=== PATIENT | female | born 1950 | race Caucasian/White ===

== ENCOUNTER 2016-08-06 06:50 | Inpatient (IN) | payer MEDICARE ==
[2016-08-06] MEDS ORDERED: SODIUM CHLORIDE 0.9% 1,000 ML IV STA ×2 (07:20→09:23)
[2016-08-06] MEDS ORDERED: ACETAMINOPHEN TAB 500 MG TAB PO STA (07:20)
--- NOTE | 2016-08-06 07:22 | ED ---
General Adult HPI - General Chief complaint: Urogenital Stated complaint: Dysuria Time Seen by Provider: 08/06/16 07:05 Source: patient, family, RN notes reviewed Mode of arrival: ambulatory Limitations: no limitations - History of Present Illness Initial comments: Patient is a pleasant 65-year-old female presenting to the emergency department with complaints of dysuria. Symptoms have been present for a couple of weeks now. Patient had a similar bad urinary tract infection a year ago. Patient was seen at a clinic in [place]. She does not have the name or phone number. Patient was told she had E. coli in her urine. Patient has been on 2 antibiotics, Bactrim and Macrobid however symptoms seemed to worsen. This morning patient developed myalgias. - Related Data Home Medications Medication Instructions Recorded Confirmed Ranger Thyroid Unknown Dose 1 tab PO DAILY 08/06/16 08/06/16 Allergies Allergy/AdvReac Type Severity Reaction Status Date / Time No Known Allergies Allergy Verified 08/06/16 08:16 Review of Systems ROS Statement: Those systems with pertinent positive or pertinent negative responses have been documented in the HPI. ROS Other: All systems not noted in ROS Statement are negative. Constitutional: Reports: chills, other (Myalgias) Eyes: Denies: eye pain ENT: Denies: ear pain Respiratory: Denies: cough Cardiovascular: Denies: chest pain Endocrine: Reports: fatigue Gastrointestinal: Denies: abdominal pain Genitourinary: Reports: urgency, dysuria, frequency Musculoskeletal: Denies: back pain Skin: Denies: lesions Neurological: Denies: weakness Past Medical History Past Medical History: Thyroid Disorder History of Any Multi-Drug Resistant Organisms: None Reported Past Surgical History: No Surgical Hx Reported Past Psychological History: No Psychological Hx Reported Smoking Status: Current some day smoker Past Alcohol Use History: Occasional Past Drug Use History: None Reported General Exam Limitations: no limitations General appearance: alert, in no apparent distress Head exam: Present: atraumatic, normocephalic Eye exam: Present: normal appearance Neck exam: Present: normal inspection Respiratory exam: Present: normal lung sounds bilaterally Cardiovascular Exam: Present: regular rate, normal rhythm GI/Abdominal exam: Present: soft. Absent: tenderness Extremities exam: Present: normal inspection Neurological exam: Present: alert Psychiatric exam: Present: normal affect, normal mood Skin exam: Present: normal color Course Vital Signs 06/18/17 06:55 Temperature 101.5 F H Pulse Rate 105 H Respiratory 20 Rate Blood Pressure 199/81 O2 Sat by Pulse 95 Oximetry Medical Decision Making - Medical Decision Making Patient reexamined and improved. Patient and family updated on results and plan. Case discussed in detail with Dr. Nunez, who will admit for Dr. Palma. Patient does meet sepsis criteria diagnosed at 9:18 AM. IV fluid bolus has been started. IV antibiotics has been started. Blood culture and lactic acid have been ordered. - Lab Data Result diagrams: 08/06/16 07:49 08/06/16 07:49 Lab Results 08/06/16 08/06/16 08/06/16 Range/Units 07:49 07:49 07:49 WBC 9.4 (3.8-10.6) k/uL RBC 4.27 (3.80-5.40) m/uL Hgb 13.9 (11.4-16.0) gm/dL Hct 41.8 (34.0-46.0) % MCV 98.0 (80.0-100.0) fL MCH 32.6 (25.0-35.0) pg MCHC 33.2 (31.0-37.0) g/dL RDW 12.7 (11.5-15.5) % Plt Count 230 (150-450) k/uL Neutrophils % 89 % Lymphocytes % 4 % Monocytes % 2 % Eosinophils % 4 % Basophils % 0 % Neutrophils # 8.4 H (1.3-7.7) k/uL Lymphocytes # 0.4 L (1.0-4.8) k/uL Monocytes # 0.2 (0-1.0) k/uL Eosinophils # 0.4 (0-0.7) k/uL Basophils # 0.0 (0-0.2) k/uL PT (9.0-12.0) sec INR (<1.1) APTT (22.0-30.0) sec Sodium 137 (137-145) mmol/L Potassium 5.0 (3.5-5.1) mmol/L Chloride 102 (98-107) mmol/L Carbon Dioxide 24 (22-30) mmol/L Anion Gap 11 mmol/L BUN 15 (7-17) mg/dL Creatinine 0.59 (0.52-1.04) mg/dL Est GFR (MDRD) Af Amer >60 (>60 ml/min/1.73 sqM) Est GFR (MDRD) Non-Af >60 (>60 ml/min/1.73 sqM) Glucose 112 H (74-99) mg/dL Plasma Lactic Acid Kobe 2.7 H* (0.7-2.0) mmol/L Calcium 9.4 (8.4-10.2) mg/dL Total Bilirubin 0.7 (0.2-1.3) mg/dL AST 55 H (14-36) U/L ALT 59 H (9-52) U/L Alkaline Phosphatase 67 (38-126) U/L Total Protein 6.7 (6.3-8.2) g/dL Albumin 4.2 (3.5-5.0) g/dL Urine Color Urine Appearance (Clear) Urine pH (5.0-8.0) Ur Specific Matador (1.001-1.035) Urine Protein (Negative) Urine Glucose (UA) (Negative) Urine Ketones (Negative) Urine Blood (Negative) Urine Nitrite (Negative) Urine Bilirubin (Negative) Urine Urobilinogen (<2.0) mg/dL Ur Leukocyte Esterase (Negative) Urine RBC (0-5) /hpf Urine WBC (0-5) /hpf Urine Mucus (None) /hpf 08/06/16 08/06/16 Range/Units 08:20 08:55 WBC (3.8-10.6) k/uL RBC (3.80-5.40) m/uL Hgb (11.4-16.0) gm/dL Hct (34.0-46.0) % MCV (80.0-100.0) fL MCH (25.0-35.0) pg MCHC (31.0-37.0) g/dL RDW (11.5-15.5) % Plt Count (150-450) k/uL Neutrophils % % Lymphocytes % % Monocytes % % Eosinophils % % Basophils % % Neutrophils # (1.3-7.7) k/uL Lymphocytes # (1.0-4.8) k/uL Monocytes # (0-1.0) k/uL Eosinophils # (0-0.7) k/uL Basophils # (0-0.2) k/uL PT 10.9 (9.0-12.0) sec INR 1.1 (<1.1) APTT 23.0 (22.0-30.0) sec Sodium (137-145) mmol/L Potassium (3.5-5.1) mmol/L Chloride (98-107) mmol/L Carbon Dioxide (22-30) mmol/L Anion Gap mmol/L BUN (7-17) mg/dL Creatinine (0.52-1.04) mg/dL Est GFR (MDRD) Af Amer (>60 ml/min/1.73 sqM) Est GFR (MDRD) Non-Af (>60 ml/min/1.73 sqM) Glucose (74-99) mg/dL Plasma Lactic Acid Kobe (0.7-2.0) mmol/L Calcium (8.4-10.2) mg/dL Total Bilirubin (0.2-1.3) mg/dL AST (14-36) U/L ALT (9-52) U/L Alkaline Phosphatase (38-126) U/L Total Protein (6.3-8.2) g/dL Albumin (3.5-5.0) g/dL Urine Color Yellow Urine Appearance Clear (Clear) Urine pH 6.5 (5.0-8.0) Ur Specific Matador 1.009 (1.001-1.035) Urine Protein Negative (Negative) Urine Glucose (UA) Negative (Negative) Urine Ketones Negative (Negative) Urine Blood Small H (Negative) Urine Nitrite Negative (Negative) Urine Bilirubin Negative (Negative) Urine Urobilinogen <2.0 (<2.0) mg/dL Ur Leukocyte Esterase Negative (Negative) Urine RBC 8 H (0-5) /hpf Urine WBC 5 (0-5) /hpf Urine Mucus Rare H (None) /hpf - Radiology Data Radiology results: image reviewed (Chest x-ray shows left basilar atelectasis versus infiltrate. Correlate for COPD., Right cardiophrenic angle likely cardiac fat pad) Critical Care Time Critical Care Time: Yes Total Critical Care Time: 32 Disposition Clinical Impression: Urinary tract infection, Severe sepsis Disposition: ADMITTED IP TO THIS [facility] Referrals: Gurmeet Palma MD [Primary Care Provider] - 1-2 days Decision Time: 09:24
[2016-08-06 08:07] LABS: Basophils % (A) 0 %; CH 32.5; CHCM 33.3; Eosinophils # (A) 0.4 k/uL (0-0.7); Eosinophils % (A) 4 %; HCT 41.8 % (34.0-46.0); HDW 2.11; HGB 13.9 gm/dL (11.4-16.0); Luc # (Auto) 0.12; Luc % (Auto) 1; Lymphocytes # (A) 0.4 k/uL (1.0-4.8); Lymphocytes % (A) 4 %; MCH 32.6 pg (25.0-35.0); MCHC 33.2 g/dL (31.0-37.0); Mean Platelet Volume 7.3; Monocytes # (A) 0.2 k/uL (0-1.0); Monocytes % (A) 2 %; Neutrophils # (A) 8.4 k/uL (1.3-7.7); Neutrophils % (A) 89 %; RBC 4.27 m/uL (3.80-5.40); RDW 12.7 % (11.5-15.5); WBC 9.4 k/uL (3.8-10.6)
[2016-08-06 08:14] LABS: Anion Gap 11 mmol/L; Calcium 9.4 mg/dL (8.4-10.2); Carbon Dioxide 24 mmol/L (22-30); Chloride 102 mmol/L (98-107); Glucose 112 mg/dL (74-99); Non-African American GFR(MDRD) >60 (>60 ml/min/1.73 sqM); Sodium 137 mmol/L (137-145); Total Bilirubin 0.7 mg/dL (0.2-1.3); Total Protein 6.7 g/dL (6.3-8.2)
[2016-08-06 08:15] LABS: Blood Urea Nitrogen 15 mg/dL (7-17)
--- NOTE | 2016-08-06 08:15 | XR ---
EXAMINATION TYPE: XR chest 2V DATE OF EXAM: 08/06/2016 COMPARISON: NONE TECHNIQUE: PA and lateral views submitted. HISTORY: Fever FINDINGS: Subsegmental changes are seen at the left lung base. Biapical pleural thickening. Hyperinflation suggests COPD. There is a prominent density along the right cardiophrenic angle. Degen erative change of the spine. IMPRESSION: 1. Left basilar atelectasis or infiltrate. 2. Correlate for COPD. There is prominence the right cardiophrenic angle which likely represents a pr ominent cardiac fat pad. Short-term follow-up CT of the chest could be obtained for confirmation as c linically warranted.
[2016-08-06 08:16] LABS: ALT 59 U/L (9-52); AST 55 U/L (14-36); Alkaline Phosphatase 67 U/L (38-126)
[2016-08-06 08:39] LABS: Appearance,Urine Clear (Clear); Bilirubin,Urine Negative (Negative); Glucose,Urine (UA) Negative (Negative); Ketones,Urine Negative (Negative); Leukocyte Esterase,Urine Negative (Negative); Mucus,Urine Rare /hpf; Nitrite,Urine Negative (Negative); PH, Urine 6.5 (5.0-8.0); Particle Count 886; Protein,Urine Negative (Negative); RBC,Urine 8 /hpf (0-5); Specific Gravity,Urine 1.009 (1.001-1.035); UA Billing (MACRO vs. MICRO) MICRO; Urobilinogen,Urine <2.0 mg/dL (<2.0); WBC,Urine 5 /hpf (0-5)
[2016-08-06 09:17] LABS: INR 1.1 (<1.1)
[2016-08-06 09:18] LABS: Prothrombin Time 10.9 sec (9.0-12.0)
[2016-08-06] MEDS ORDERED: NALOXONE 0.4 MG/ML 1 ML VIAL IV PRN (09:25)
[2016-08-06] MEDS ORDERED: RX INFO: IV CONTRAST WAS GIVEN 1 EACH MISC MISCELLANE PRN (09:27)
[2016-08-06] MEDS: SODIUM CHLORIDE 0.9% 1,000 ML IV SCH ×3 (09:38→21:51)
--- NOTE | 2016-08-06 10:24 | CT ---
EXAMINATION TYPE: CT chest w con DATE OF EXAM: Criteria COMPARISON: NONE HISTORY: Abn CXR CT DLP: 184.2 mGycm Automated exposure control for dose reduction was used. CONTRAST: CT scan of the chest is performed with IV Contrast, patient injected with 100 mL of Omnipaque 300. FINDINGS: Apical pleural thickening seen with findings suggestive of COPD and pulmonary fibrosis. Pleural-based densities posteriorly likely postinflammatory. No pneumothorax or pleural effusion. Subsegmental consolidation at the left lung base. There also is subsegmental consolidation the right lung base. Prominence of the right cardiophrenic angle is compatible with fat pad as noted by x-ray. Hypertrophic and degenerative change of the spine. Small hiatal hernia noted. Hypodensity within the liver too small to characterize accurately. There is adenopathy within the subcarinal and bilateral hilar regions. Aorta of normal caliber. 2 mm nodule lower lobe left likely benign. IMPRESSION: 1. Prominence the cardiophrenic angle as noted by chest x-ray is compatible with a prominent fat pad. 2. COPD with probable interstitial chronic lung disease such as fibrosis. Areas of basilar atelectasi s favored over early infiltrate. 3. There is pathologic bilateral hilar and subcarinal adenopathy. 4. 2 mm left lower lobe pulmonary nodule likely benign. Six-month follow-up CT scan recommended.
[2016-08-06] MEDS ORDERED: AZITHROMYCIN 500 MG in SODIUM CHLORIDE 0.9% 250 ML IVPB SCH (12:00)
[2016-08-06] MEDS: ALPRAZolam 0.25 MG TAB PO PRN ×2 (13:22→21:49)
[2016-08-06] MEDS: PHENAZOPYRIDINE 200 MG TAB PO SCH ×2 (15:11→21:49)
[2016-08-06] MEDS: ACETAMINOPHEN TAB 325 MG TAB PO PRN ×2 (15:54→21:48)
[2016-08-06] MEDS: diphenhydrAMINE 50 MG/ML 1 ML VIAL IVP PRN (18:15)
--- NOTE | 2016-08-06 18:28 | HP ---
DATE OF ADMISSION: 08/06/2016 CHIEF COMPLAINT: Dysuria. HISTORY OF PRESENT ILLNESS: This is a 65-year-old female who presented to the emergency department complaining of dysuria. The patient had a history of recurrent urinary tract infection for almost one year with multiple antibiotic treatment outpatient failed recently and the patient presented to the emergency department due to ongoing symptoms after treating with Cipro. The patient said she has frequency, hesitancy and drippling. Patient denied any blood in the urine. Denied any fever or chills and denied any nausea or vomiting or flank pain. Patient completed her course of Bactrim and Macrobid and thinks that her symptoms got worse and the patient this morning developed some weakness and presented to the emergency department. Patient is denying fever or chills, nausea, vomiting, abdominal pain, dizziness, lightheadedness, shortness breath, no cough. REVIEW OF SYSTEMS: All 14 systems reviewed and negative except as above. ALLERGIES: No known drug allergies. HOME MEDICATIONS: Troy 1 tablet daily. PAST MEDICAL AND SURGICAL HISTORY: 1. Hypothyroidism. 2. Recurrent urinary tract infection. SOCIAL HISTORY: Patient smokes less than 5 cigarettes a day and not every day. Denied alcohol or drug abuse. Still independent in all her daily activities. FAMILY HISTORY: Reviewed and negative. PHYSICAL EXAMINATION: VITAL SIGNS: Temperature 101.5, heart rate of 105, respiratory rate 20, blood pressure is 199/81, respiratory rate is ( ), saturation is 95% on room air. GENERAL: In her stated age, in no acute distress. HEENT: Atraumatic, normocephalic. PERRLA. NECK: Supple, no masses. No thyromegaly. LUNGS: Clear to auscultation bilaterally. HEART: Normal S1, S2. ABDOMEN: Soft, no tenderness, positive bowel sounds in all 4 quadrants. EXTREMITIES: Lower extremities no edema. PSYCH: Alert, and oriented x3. SKIN: No new rash. Imaging and labs: CBC showed normal findings. Chemistry showed normal findings. Glucose slightly elevated at 112. Lactic acid was elevated at 2.7 and the highest normal is 2.0, AST, ALT, slightly elevated at 55, 59 respectively. PT, PTT, INR within normal limits. UA was positive for a small blood, 8 red blood cells, 5 white blood cells and rare mucus. Chest x-ray showed left basilar atelectasis versus infiltrate. ASSESSMENT AND PLAN: 1. Sepsis, given the patient fever of 101.5, heart rate of 105, positive UA with positive chest x-ray. I would like to admit the patient to telemetry, start her on IV antibiotics. The patient received multiple fluid boluses due to elevated lactic acid and I would like to continue with fluid hydration. Monitor the patient's vital signs closely and follow up on urine culture blood culture. Patient is agreeing to the current treatment plan. 2. Recurrent urinary tract infection which failed outpatient treatment. Will continue antibiotics at this point. Follow up on culture results and consider infectious disease based on clinical progress. 3. Hypothyroidism. We will check on her TSH. 4. Uncontrolled hypertension and I would like to monitor blood pressure closely and goal is less than 140/90. 5. Deep venous thrombosis prophylaxis, the patient will be started on Lovenox 40 daily. 6. Discharge process based on clinical progress.
[2016-08-06 22:02] VITALS: RESP 16
[2016-08-07] MEDS: diphenhydrAMINE 50 MG/ML 1 ML VIAL IVP PRN ×3 (06:03→18:45)
[2016-08-07] MEDS: ACETAMINOPHEN TAB 325 MG TAB PO PRN (06:09)
[2016-08-07 07:58] LABS: Basophils % (A) 0 %; CH 32.8; CHCM 34.3; Eosinophils # (A) 0.5 k/uL (0-0.7); Eosinophils % (A) 8 %; HCT 35.9 % (34.0-46.0); HDW 2.33; HGB 12.2 gm/dL (11.4-16.0); Luc # (Auto) 0.08; Luc % (Auto) 1; Lymphocytes # (A) 0.4 k/uL (1.0-4.8); Lymphocytes % (A) 7 %; MCH 32.5 pg (25.0-35.0); MCHC 33.9 g/dL (31.0-37.0); MCV 95.9 fL (80.0-100.0); Monocytes # (A) 0.2 k/uL (0-1.0); Monocytes % (A) 3 %; Neutrophils # (A) 4.7 k/uL (1.3-7.7); Neutrophils % (A) 80 %; RBC 3.74 m/uL (3.80-5.40); RDW 12.6 % (11.5-15.5); WBC 5.9 k/uL (3.8-10.6); WBC (Perox) 6.28
--- NOTE | 2016-08-07 08:09 | US ---
EXAMINATION TYPE: US renals and bladder DATE OF EXAM: 08/06/2016 COMPARISON: NONE CLINICAL HISTORY: Flank pain. EXAM MEASUREMENTS: Right Kidney: 11.4 x 4.7 x 4.9 cm Left Kidney: 11.2 x 5.1 x 4.9 cm Limited due to nature of exam portable and overlying bowel gas. Right Kidney: Appears wnl Left Kidney: Appears wnl Bladder: Appears wnl Bilateral Jets seen: Yes There is no evidence for hydronephrosis at this point in time. No nephrolithiasis is seen. No aramis s are identified. The kidneys are morphologically normal, cortical medullary differentiation is main tained. The urinary bladder is anechoic. Bilateral ureteral jets are seen. IMPRESSION: Normal renal ultrasound
[2016-08-07 08:13] LABS: ALT 126 U/L (9-52); AST 89 U/L (14-36); Alkaline Phosphatase 73 U/L (38-126); Anion Gap 7 mmol/L; Blood Urea Nitrogen 8 mg/dL (7-17); Calcium 8.5 mg/dL (8.4-10.2); Carbon Dioxide 23 mmol/L (22-30); Chloride 108 mmol/L (98-107); Glucose 86 mg/dL (74-99); Non-African American GFR(MDRD) >60 (>60 ml/min/1.73 sqM); Potassium 3.7 mmol/L (3.5-5.1); Sodium 138 mmol/L (137-145); Total Bilirubin 0.5 mg/dL (0.2-1.3); Total Protein 5.4 g/dL (6.3-8.2)
[2016-08-07] MEDS ORDERED: IBUPROFEN 600 MG TAB PO PRN (08:59)
[2016-08-07] MEDS: ENOXAPARIN 40 MG/0.4 ML SYRINGE SQ SCH (09:06)
[2016-08-07] MEDS: PHENAZOPYRIDINE 200 MG TAB PO SCH ×3 (09:08→21:04)
[2016-08-07] MEDS: ALPRAZolam 0.25 MG TAB PO PRN ×2 (09:12→19:18)
--- NOTE | 2016-08-07 10:00 | P.CONS ---
History of Present Illness - Reason for Consult Consult date: 08/07/16 UTIs - History of Present Illness This is a 65-year-old female. She gives history that she had a urinary tract infection last September which took a couple weeks to complete we clear up. She states she was on 2 different antibiotics at that time and does not remember the names. She had not had any previous urinary tract infections for 20 years. Patient states she started having symptoms 2-3 weeks ago which include pressure, urgency, back pain on the left. She was treated in [place] initially and placed on Bactrim which she started feeling better the first day or so and then started feeling bad again. She and her traveled to to visit their daughter and due to ongoing symptoms, she went to the [facility] clinic in [place], [place]. She was told she had E. coli in her urine and was placed on Macrobid. She states she felt better for about 1 day and then started feeling bad again. This weekend, she started feeling bad on Sunday and developed fever as well but she was at her grandson's graduation green party and postponed it until Sunday. She presented to [facility] emergency center with the above complaints. Her temperature was 101.5, pulse 105, white count 9.4, GFR greater than 60, lactic acid initially 2.7 with repeat at 0.8 status post fluid bolus, AST 55 and ALT 55, urinalysis was clear, blood small, nitrate and leukoesterase negative. 2 urine cultures are in process, blood culture is received. Legionella is status post received. Patient received 1 dose of azithromycin in the emergency center as well as ceftriaxone which was continued and [facility]. Patient denies any pulmonary complaints, no chest pain, shortness of breath, cough, sputum production. She states the pressure to her lower abdomen is improved she is complaining of severe headache. Patient did develop a rash after receiving these azithromycin and ceftriaxone. Patient was also hypertensive on presentation which is unusual for her. Patient states that when this initially started she was having a large amount of blood from her urine. Renal ultrasound is normal. Review of Systems All systems: negative Constitutional: Reports chills, Reports fever Eyes: denies blurred vision, denies pain Ears, nose, mouth and throat: Denies headache, Denies sore throat Cardiovascular: Denies chest pain, Denies leg edema, Denies shortness of breath Respiratory: Denies cough, Denies cough with sputum, Denies dyspnea, Denies excessive sputum, Denies hemoptysis, Denies home oxygen, Denies pain, Denies pain on inspiration, Denies respiratory infections, Denies wheezing Gastrointestinal: Reports abdominal pain, Denies diarrhea, Denies nausea, Denies vomiting Genitourinary: Reports flank pain, Reports hematuria, Reports urgency, Denies dysuria Musculoskeletal: Denies myalgias Integumentary: Denies pruritus, Denies rash Neurological: Denies numbness, Denies weakness Psychiatric: Denies anxiety, Denies depression Endocrine: Denies fatigue, Denies weight change Past Medical History Past Medical History: Thyroid Disorder Additional Past Medical History / Comment(s): Hypothyroid History of Any Multi-Drug Resistant Organisms: None Reported Past Surgical History: No Surgical Hx Reported, Tonsillectomy Past Anesthesia/Blood Transfusion Reactions: No Reported Reaction Past Psychological History: Anxiety Smoking Status: Never smoker Past Alcohol Use History: Daily Additional Past Alcohol Use History / Comment(s): 1-2 glasses of wine/day. She lives at home with her . They travel extensively throughout the [facility] mostly in [place] and [place]. There are no pets in the home. 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 She walks on a regular basis as well as works out. Past Drug Use History: None Reported - Past Family History Mother Family Medical History: Congestive Heart Failure (CHF), Renal Disease Additional Family Medical History / Comment(s): kidney stones Father Additional Family Medical History / Comment(s): lung disease related to asbestos exposure Medications and Allergies Home Medications Medication Instructions Recorded Confirmed Type Multivitamins, Thera [Multivitamin 1 tab PO DAILY 08/06/16 08/07/16 History (formulary)] Thyroid,Pork [Nature-Throid] 97.5 mg PO DAILY 08/07/16 08/07/16 History Allergies Allergy/AdvReac Type Severity Reaction Status Date / Time ceftriaxone Allergy Intermediate Rash/Hives Verified 08/07/16 11:20 Physical Exam Vitals: Vital Signs Temp Pulse Pulse Pulse Resp BP BP 08/07/16 07:00 99.3 F 80 16 128/71 08/07/16 00:00 96 96 16 08/06/16 20:45 99.2 F 96 16 105/58 08/06/16 14:11 98.6 F 96 24 154/88 08/06/16 12:26 99.4 F 96 16 143/78 08/06/16 10:43 100.2 F H 96 18 129/61 08/06/16 09:45 100.7 F H 98 16 127/61 Pulse Ox 08/07/16 07:00 91 L 08/07/16 00:00 08/06/16 20:45 92 L 08/06/16 14:11 94 L 08/06/16 12:26 95 08/06/16 10:43 98 08/06/16 09:45 96 Intake and Output 08/06/16 08/07/16 08/07/16 22:59 06:59 14:59 Intake Total 120 1080 Balance 120 1080 Intake: Intake, IV Titration 960 Amount Sodium Chloride 0.9% 1, 960 000 ml @ 110 mls/hr IV . Q9H6M [facility] Rx#:[id number] Oral 120 120 Other: # Voids 2 3 Gen: This is a 65-year-old female. She is laying in bed and appears to be in no acute distress. HEENT: Head is atraumatic, normocephalic. Pupils equal, round. Sclerae is anicteric. NECK: Supple. No JVD. No lymphadenopathy. No thyromegaly. LUNGS: Clear to auscultation. No wheezes or rhonchi. No intercostal retractions. HEART: Regular rate and rhythm. No murmur. ABDOMEN: Soft. Bowel sounds are present. No masses. No tenderness. Mild left flank tenderness. EXTREMITIES: No pedal edema. No calf tenderness. NEUROLOGICAL: Patient is awake, alert and oriented x3. Cranial nerves 2 through 12 are grossly intact. Results Results: Laboratory Results WBC 5.9 k/uL (3.8-10.6) 08/07/16 07:19 RBC 3.74 m/uL (3.80-5.40) L 08/07/16 07:19 Hgb 12.2 gm/dL (11.4-16.0) 08/07/16 07:19 Hct 35.9 % (34.0-46.0) 08/07/16 07:19 MCV 95.9 fL (80.0-100.0) 08/07/16 07:19 MCH 32.5 pg (25.0-35.0) 08/07/16 07:19 MCHC 33.9 g/dL (31.0-37.0) 08/07/16 07:19 RDW 12.6 % (11.5-15.5) 08/07/16 07:19 Plt Count 211 k/uL (150-450) 08/07/16 07:19 Neutrophils % 80 % 08/07/16 07:19 Lymphocytes % 7 % 08/07/16 07:19 Monocytes % 3 % 08/07/16 07:19 Eosinophils % 8 % 08/07/16 07:19 Basophils % 0 % 08/07/16 07:19 Neutrophils # 4.7 k/uL (1.3-7.7) 08/07/16 07:19 Lymphocytes # 0.4 k/uL (1.0-4.8) L 08/07/16 07:19 Monocytes # 0.2 k/uL (0-1.0) 08/07/16 07:19 Eosinophils # 0.5 k/uL (0-0.7) 08/07/16 07:19 Basophils # 0.0 k/uL (0-0.2) 08/07/16 07:19 PT 10.9 sec (9.0-12.0) 08/06/16 08:55 INR 1.1 (<1.1) 08/06/16 08:55 APTT 23.0 sec (22.0-30.0) 08/06/16 08:55 Sodium 138 mmol/L (137-145) 08/07/16 07:19 Potassium 3.7 mmol/L (3.5-5.1) 08/07/16 07:19 Chloride 108 mmol/L (98-107) H 08/07/16 07:19 Carbon Dioxide 23 mmol/L (22-30) 08/07/16 07:19 Anion Gap 7 mmol/L 08/07/16 07:19 BUN 8 mg/dL (7-17) 08/07/16 07:19 Creatinine 0.59 mg/dL (0.52-1.04) 08/07/16 07:19 Est GFR (MDRD) Af Amer >60 (>60 ml/min/1.73 sqM) 08/07/16 07:19 Est GFR (MDRD) Non-Af >60 (>60 ml/min/1.73 sqM) 08/07/16 07:19 Glucose 86 mg/dL (74-99) 08/07/16 07:19 Plasma Lactic Acid Kobe 0.8 mmol/L (0.7-2.0) 08/06/16 11:19 Calcium 8.5 mg/dL (8.4-10.2) 08/07/16 07:19 Total Bilirubin 0.5 mg/dL (0.2-1.3) 08/07/16 07:19 AST 89 U/L (14-36) H 08/07/16 07:19 ALT 126 U/L (9-52) H 08/07/16 07:19 Alkaline Phosphatase 73 U/L (38-126) 08/07/16 07:19 Total Protein 5.4 g/dL (6.3-8.2) L 08/07/16 07:19 Albumin 3.1 g/dL (3.5-5.0) L 08/07/16 07:19 Urine Color Yellow 08/06/16 08:20 Urine Appearance Clear (Clear) 08/06/16 08:20 Urine pH 6.5 (5.0-8.0) 08/06/16 08:20 Ur Specific Correll 1.009 (1.001-1.035) 08/06/16 08:20 Urine Protein Negative (Negative) 08/06/16 08:20 Urine Glucose (UA) Negative (Negative) 08/06/16 08:20 Urine Ketones Negative (Negative) 08/06/16 08:20 Urine Blood Small (Negative) H 08/06/16 08:20 Urine Nitrite Negative (Negative) 08/06/16 08:20 Urine Bilirubin Negative (Negative) 08/06/16 08:20 Urine Urobilinogen <2.0 mg/dL (<2.0) 08/06/16 08:20 Ur Leukocyte Esterase Negative (Negative) 08/06/16 08:20 Urine RBC 8 /hpf (0-5) H 08/06/16 08:20 Urine WBC 5 /hpf (0-5) 08/06/16 08:20 Urine Mucus Rare /hpf (None) H 08/06/16 08:20 CBC & Chem 7: 08/07/16 07:19 08/07/16 07:19 Labs: Abnormal Lab Results - Last 24 Hours (Table) 08/06/16 08/06/16 08/07/16 Range/Units 07:49 08:20 07:19 RBC 3.74 L (3.80-5.40) m/uL Lymphocytes # 0.4 L (1.0-4.8) k/uL Chloride (98-107) mmol/L Plasma Lactic Acid Kobe 2.7 H* (0.7-2.0) mmol/L AST (14-36) U/L ALT (9-52) U/L Total Protein (6.3-8.2) g/dL Albumin (3.5-5.0) g/dL Urine Blood Small H (Negative) Urine RBC 8 H (0-5) /hpf Urine Mucus Rare H (None) /hpf 08/07/16 Range/Units 07:19 RBC (3.80-5.40) m/uL Lymphocytes # (1.0-4.8) k/uL Chloride 108 H (98-107) mmol/L Plasma Lactic Acid Kobe (0.7-2.0) mmol/L AST 89 H (14-36) U/L ALT 126 H (9-52) U/L Total Protein 5.4 L (6.3-8.2) g/dL Albumin 3.1 L (3.5-5.0) g/dL Urine Blood (Negative) Urine RBC (0-5) /hpf Urine Mucus (None) /hpf Microbiology - Last 24 Hours (Table) 08/06/16 16:18 Urine Culture - Preliminary Urine,Voided 08/06/16 08:20 Urine Culture - Preliminary Urine,Clean Catch Assessment and Plan Plan: This is a 65-year-old female who presented to the hospital with signs of sepsis secondary to urinary tract infection that failed outpatient treatment. We will ask our community fundraiser to obtain recent urinalysis and urine culture done in [place], [place]. Ceftriaxone will be discontinued with concern for ALLERGIC reaction and antibiotics will be addressed with culture report. Patient has RA been started on Benadryl and hydrocortisone ointment ointment will be added. Blood cultures status received as well as urine cultures are in progress. Continue supportive care. Further recommendations as patient progresses. The above dictated assessment and findings were discussed with Dr. Dejesus. The impression and plan of care have been directed as dictated. Virgen Villagomez nurse practitioner acting as scribe for Dr. Dejesus.
[2016-08-07] MEDS: TRIAMCINOLONE 0.1% CREAM 80 GM TUBE TOPICAL SCH ×3 (10:33→21:06)
[2016-08-07] MEDS ORDERED: LEVOFLOXACIN 500MG-D5W PMX 500 MG in DEXTROSE/WATER 1 100ML.BAG IVPB SCH (12:00)
--- NOTE | 2016-08-07 14:14 | P.PN ---
Subjective This is a 65-year-old female patient of Dr. Palma with a past medical history of hypothyroidism. She gives history that she had a urinary tract infection last September which took a couple weeks to complete we clear up. She states she was on 2 different antibiotics at that time and does not remember the names. She had not had any previous urinary tract infections for 20 years. Patient states she started having symptoms 2-3 weeks ago which include pressure, urgency, back pain on the left. She was treated in [place] initially and placed on Bactrim which she started feeling better the first day or so and then started feeling bad again. She and her traveled to to visit their daughter and due to ongoing symptoms, she went to the [facility] clinic in [place], [place]. She was told she had E. coli in her urine and was placed on Macrobid. She states she felt better for about 1 day and then started feeling bad again. This weekend, she started feeling bad on Sunday and developed fever as well but she was at her grandson's graduation libertarian and postponed it until Sunday. She presented to [facility] emergency center with the above complaints. Her temperature was 101.5 , pulse 105, white count 9.4, GFR greater than 60, lactic acid initially 2.7 with repeat at 0.8 status post fluid bolus, AST 55 and ALT 55, urinalysis was clear, blood small, nitrate and leukoesterase negative. 2 urine cultures are in process, blood culture is received. Legionella is status post received. Patient received 1 dose of azithromycin in the emergency center as well as ceftriaxone which was continued and [facility] Patient denies any pulmonary complaints, no chest pain, shortness of breath, cough, sputum production. She states the pressure to her lower abdomen is improved she is complaining of severe headache. Patient did develop a rash after receiving these azithromycin and ceftriaxone. Patient was also hypertensive on presentation which is unusual for her. Patient states that when this initially started she was having a large amount of blood from her urine. Renal ultrasound is normal. Objective - Vital Signs Vital signs: Vital Signs Temp 99.3 F 08/07/16 07:00 Pulse 80 08/07/16 07:00 Resp 16 08/07/16 07:00 BP 128/71 08/07/16 07:00 Pulse Ox 91 L 08/07/16 07:00 Intake & Output 08/06/16 08/07/16 08/07/16 18:59 06:59 18:59 Intake Total 1200 Balance 1200 Intake: Intake, IV Titration 960 Amount Sodium Chloride 0.9% 1, 960 000 ml @ 110 mls/hr IV . Q9H6M GRIFFIN Rx#:[id number] Oral 240 Other: # Voids 3 - Exam Gen: This is a 65-year-old female. She is laying in bed and appears to be in no acute distress. HEENT: Head is atraumatic, normocephalic. Pupils equal, round. Sclerae is anicteric. NECK: Supple. No JVD. No lymphadenopathy. No thyromegaly. LUNGS: Clear to auscultation. No wheezes or rhonchi. No intercostal retractions. HEART: Regular rate and rhythm. No murmur. ABDOMEN: Soft. Bowel sounds are present. No masses. No tenderness. Mild left flank tenderness. EXTREMITIES: No pedal edema. No calf tenderness. NEUROLOGICAL: Patient is awake, alert and oriented x3. Cranial nerves 2 through 12 are grossly intact. - Labs CBC & Chem 7: 08/07/16 07:19 08/07/16 07:19 Labs: Abnormal Lab Results - Last 24 Hours (Table) 08/07/16 08/07/16 Range/Units 07:19 07:19 RBC 3.74 L (3.80-5.40) m/uL Lymphocytes # 0.4 L (1.0-4.8) k/uL Chloride 108 H (98-107) mmol/L AST 89 H (14-36) U/L ALT 126 H (9-52) U/L Total Protein 5.4 L (6.3-8.2) g/dL Albumin 3.1 L (3.5-5.0) g/dL Microbiology - Last 24 Hours (Table) 08/06/16 08:55 Blood Culture - Preliminary Blood No Growth after 24 hours 08/06/16 16:18 Urine Culture - Preliminary Urine,Voided 08/06/16 08:20 Urine Culture - Preliminary Urine,Clean Catch Assessment and Plan Plan: 1. Sepsis and urinary tract infection. Consult with Dr. Dejesus. Patient placed on Levaquin until Dr. Dejesus makes arrangements for antibiotics. Culture obtained from [place]. Patient is status post IV fluid bolus. Continue Pyridium 2. ALLERGIC reaction to ceftriaxone. This is been discontinued. Continue Benadryl and hydrocortisone topically. 3. Hypothyroidism. Continue Synthroid. 4. Headache possibly caffeine related. Motrin added as needed. 5. Hypertensive readings on presentation with no previous history. Continue to monitor. 6. DVT prophylaxis. Continue Lovenox. 7. Gastrointestinal prophylaxis. Pepcid. Discharge plan: Home in the next 24-48 hours. Impression and plan of care have been directed as dictated by the signing physician. Virgen Villagomez nurse practitioner acting as scribe for signing physician.
[2016-08-07] MEDS: SODIUM CHLORIDE 0.9% 1,000 ML IV SCH ×2 (16:57→23:44)
[2016-08-07] MEDS: methylPREDNISolone SOD SUCCI 40 MG/ML 1 ML VIAL IV SCH ×2 (16:58→23:40)
--- NOTE | 2016-08-07 21:23 | P.CON ---
Consult Note - . Consult date: 08/07/16 Assessment/Plan:: This is a 65-year-old female. She gives history that she had a urinary tract infection last September which took a couple weeks to complete we clear up. She states she was on 2 different antibiotics at that time and does not remember the names. She had not had any previous urinary tract infections for 20 years. Patient states she started having symptoms 2-3 weeks ago which include pressure, urgency, back pain on the left. She was treated in [place] initially and placed on Bactrim which she started feeling better the first day or so and then started feeling bad again. She and her traveled to to visit their daughter and due to ongoing symptoms, she went to the [facility] clinic in [place], [place]. She was told she had E. coli in her urine and was placed on Macrobid. She states she felt better for about 1 day and then started feeling bad again. This weekend, she started feeling bad on Sunday and developed fever as well but she was at her grandson's graduation alliance party and postponed it until Sunday. She presented to [facility] emergency center with the above complaints. Her temperature was 101.5, pulse 105, white count 9.4, GFR greater than 60, lactic acid initially 2.7 with repeat at 0.8 status post fluid bolus, AST 55 and ALT 55, urinalysis was clear, blood small, nitrate and leukoesterase negative. 2 urine cultures are in process, blood culture is received. Legionella is status post received. Patient received 1 dose of azithromycin in the emergency center as well as ceftriaxone which was continued and [facility] Patient denies any pulmonary complaints, no chest pain, shortness of breath, cough, sputum production. She states the pressure to her lower abdomen is improved she is complaining of severe headache. Patient did develop a rash after receiving these azithromycin and ceftriaxone. Patient was also hypertensive on presentation which is unusual for her. Patient states that when this initially started she was having a large amount of blood from her urine. Renal ultrasound is normal. Please see the consult note is dictated by nurse practitioner Virgen Haneydennise. Very pleasant woman does have a history of recent travel. Developed urinary tract infection. likely had some ascending disease with her significant symptoms. Now developed a significant drug eruption from ceftriaxone. Treatment has been initiated and she is feeling slightly better. The prior urine culture shows evidence of Escherichia coli. It is susceptible to quinolone therapy. The plan 7 days from her diabetic discharge tomorrow. Likely discharge tomorrow as her drug eruption fades. Would expect that she can be treated with completion of Benadryl and no further steroids at the time of discharge. I agree with evaluation, assessment plan is dictated by nurse practitioner Mrs. Virgen Villagomez.
[2016-08-08] MEDS: methylPREDNISolone SOD SUCCI 40 MG/ML 1 ML VIAL IV SCH (05:53)
[2016-08-08 07:59] VITALS: BP 138/84; PULSE 75; TEMP 97.5
[2016-08-08] MEDS: diphenhydrAMINE 50 MG/ML 1 ML VIAL IVP PRN (08:52)
[2016-08-08] MEDS: ENOXAPARIN 40 MG/0.4 ML SYRINGE SQ SCH (08:52)
[2016-08-08] MEDS: TRIAMCINOLONE 0.1% CREAM 80 GM TUBE TOPICAL SCH (08:52)
[2016-08-08] MEDS: PHENAZOPYRIDINE 200 MG TAB PO SCH (08:52)
[2016-08-08] MEDS ORDERED: FAMOTIDINE 20 MG TAB PO SCH (09:00)
[2016-08-08] MEDS: SODIUM CHLORIDE 0.9% 1,000 ML IV SCH (11:31)
--- NOTE | 2016-08-09 16:35 | P.DS ---
Providers Date of admission: 08/06/16 09:25 Expected date of discharge: 08/08/16 Attending physician: Gurmeet Palma Consults: 08/06/16 16:05 Consult Physician Urgent Consulting Provider: Gurmeet Dejesus Reason/Comments: post travel illness Do you want consulting provider notified?: Yes Primary care physician: Gurmeet Louie [facility] Course: This is a 65-year-old female patient of Dr. Palma with a past medical history of hypothyroidism. She gives history that she had a urinary tract infection last September which took a couple weeks to complete we clear up. She states she was on 2 different antibiotics at that time and does not remember the names. She had not had any previous urinary tract infections for 20 years. Patient states she started having symptoms 2-3 weeks ago which include pressure, urgency, back pain on the left. She was treated in [place] initially and placed on Bactrim which she started feeling better the first day or so and then started feeling bad again. She and her traveled to to visit their daughter and due to ongoing symptoms, she went to the [facility] clinic in [place], [place]. She was told she had E. coli in her urine and was placed on Macrobid. She states she felt better for about 1 day and then started feeling bad again. This weekend, she started feeling bad on Sunday and developed fever as well but she was at her grandson's graduation democrat and postponed it until Sunday. She presented to [facility] emergency center with the above complaints. Her temperature was 101.5 , pulse 105, white count 9.4, GFR greater than 60, lactic acid initially 2.7 with repeat at 0.8 status post fluid bolus, AST 55 and ALT 55, urinalysis was clear, blood small, nitrate and leukoesterase negative. 2 urine cultures are in process, blood culture is received. Legionella is status post received. Patient received 1 dose of azithromycin in the emergency center as well as ceftriaxone which was continued and [facility] Patient denies any pulmonary complaints, no chest pain, shortness of breath, cough, sputum production. She states the pressure to her lower abdomen is improved she is complaining of severe headache. Patient did develop a rash after receiving these azithromycin and ceftriaxone. Patient was also hypertensive on presentation which is unusual for her. Patient states that when this initially started she was having a large amount of blood from her urine. Renal ultrasound is normal. 08/08: Patients rash is improving. She will be discharged home with benadryl and medrol dose pack. Discussed that she should avoid penicillins and cephalosporins in the future. She will be discharged on Levaquin for her urinary tract infection. Discharge Diagnoses: Plan: 1. Sepsis and urinary tract infection. 2. ALLERGIC reaction to ceftriaxone. 3. Hypothyroidism. 4. Headache possibly caffeine related. 5. Hypertensive readings on presentation with no previous history. Discharge plan: Home Impression and plan of care have been directed as dictated by the signing physician. Moira Fong nurse practitioner acting as scribe for signing physician. Plan - Discharge Summary New Discharge Prescriptions: New Acetaminophen Tab [Tylenol] 650 mg PO Q6HR PRN tab PRN Reason: Mild Pain Or Fever > 100.5 ALPRAZolam [Xanax] 0.25 mg PO Q8HR PRN #30 tab PRN Reason: Anxiety diphenhydrAMINE [Benadryl] 25 mg PO QID #60 capsule Famotidine [Pepcid] 20 mg PO DAILY tab Ibuprofen [Motrin] 600 mg PO TID PRN tab PRN Reason: Pain Levofloxacin [Levaquin] 500 mg PO DAILY #7 tab methylPREDNISolone Dose Pack [Medrol Dose Pack] 4 mg PO DIRECTED #21 package Phenazopyridine [Pyridium] 200 mg PO TID #12 tab Triamcinolone 0.1% Cream [Kenalog] 1 applic TOPICAL BID #100 gm Continue Multivitamins, Thera [Multivitamin (formulary)] 1 tab PO DAILY Thyroid,Pork [Nature-Throid] 97.5 mg PO DAILY Discharge Medication List Multivitamins, Thera [Multivitamin (formulary)] 1 tab PO DAILY 08/06/16 [History ] Thyroid,Pork [Nature-Throid] 97.5 mg PO DAILY 08/07/16 [History] ALPRAZolam [Xanax] 0.25 mg PO Q8HR PRN #30 tab 08/08/16 [Rx] Acetaminophen Tab [Tylenol] 650 mg PO Q6HR PRN tab 08/08/16 [Rx] Famotidine [Pepcid] 20 mg PO DAILY tab 08/08/16 [Rx] Ibuprofen [Motrin] 600 mg PO TID PRN tab 08/08/16 [Rx] Levofloxacin [Levaquin] 500 mg PO DAILY #7 tab 08/08/16 [Rx] Phenazopyridine [Pyridium] 200 mg PO TID #12 tab 08/08/16 [Rx] Triamcinolone 0.1% Cream [Kenalog] 1 applic TOPICAL BID #100 gm 08/08/16 [Rx] diphenhydrAMINE [Benadryl] 25 mg PO QID #60 capsule 08/08/16 [Rx] methylPREDNISolone Dose Pack [Medrol Dose Pack] 4 mg PO DIRECTED #21 package 08/08/16 [Rx] Follow up Appointment(s)/Referral(s): Mimi Ureña MD [STAFF PHYSICIAN] - 08/24/16 2:15 pm Patient Instructions/Handouts: Phenazopyridine (By mouth), Famotidine (By mouth ), Acetaminophen (By mouth), Ibuprofen (By mouth), Alprazolam (By mouth), Diphenhydramine (By mouth), Triamcinolone (On the skin), Methylprednisolone (By mouth), Levofloxacin (By mouth), Urinary Tract Infection in Women (DC), Sepsis ( GEN) Discharge Disposition: HOME SELF-CARE
== END 2016-08-08 11:48 | disposition home or self-care (01) | DRG 872 ==
LOC: EC 06:50 → 5MS5E 09:25
PROVIDERS: ADMIT Internal Medicine Geriatric Medicine; ATTEND Internal Medicine Geriatric Medicine
DX: A41.9 Sepsis, unspecified organism (principal); N39.0 Urinary tract infection, site not specified; E03.9 Hypothyroidism, unspecified; F17.210 Nicotine dependence, cigarettes, uncomplicated; F41.9 Anxiety disorder, unspecified; R51 Headache; R03.0 Elevated blood-pressure reading, without diagnosis of hypertension; L27.0 Generalized skin eruption due to drugs and medicaments taken internally; T36.1X5A Adverse effect of cephalosporins and other beta-lactam antibiotics, initial encounter; Z87.440 Personal history of urinary (tract) infections; Z79.899 Other long term (current) drug therapy; Z88.1 Allergy status to other antibiotic agents; Z82.49 Family history of ischemic heart disease and other diseases of the circulatory system; Y92.239 Unspecified place in hospital as the place of occurrence of the external cause
CPT/HCPCS: 36415; 71020; 71260; 76770; 80053; 81001; 83605; 85025; 85610; 85730; 87040; 87086; 87449; 94760

== ENCOUNTER → 2016-08-24 | Outpatient (CLI) | payer MEDICARE ==
[2016-08-24 12:23] LABS: ALT 57 U/L (9-52); AST 28 U/L (14-36); Alkaline Phosphatase 80 U/L (38-126); Anion Gap 11 mmol/L; Blood Urea Nitrogen 14 mg/dL (7-17); Calcium 10.1 mg/dL (8.4-10.2); Carbon Dioxide 24 mmol/L (22-30); Chloride 106 mmol/L (98-107); Glucose 105 mg/dL (74-99); Non-African American GFR(MDRD) >60 (>60 ml/min/1.73 sqM); Sodium 141 mmol/L (137-145); Total Bilirubin 0.5 mg/dL (0.2-1.3)
== END | disposition home or self-care (01) ==
LOC: LABWHC1 11:33
PROVIDERS: ATTEND Internal Medicine Critical Care Medicine
DX: R59.0 Localized enlarged lymph nodes (principal)
CPT/HCPCS: 36415; 80053; 82164; 85652; 86141

== ENCOUNTER → 2016-09-15 | Outpatient (CLI) | payer MEDICARE ==
--- NOTE | 2016-09-19 11:00 | MM ---
Reason for exam: screening (asymptomatic). Last mammogram was performed 1 year and 1 month ago. History: Patient is postmenopausal. Benign cyst aspiration of the right breast. Took estrogen for 4 years beginning at age 53. Physical Findings: A clinical breast exam by your physician is recommended on an annual basis and results should be correlated with mammographic findings. MG 3D Screening Mammo W/Cad Bilateral CC and MLO view(s) were taken. Prior study comparison: August 24, 2015, bilateral MG 3d screening mammo w/cad. August 19, 2014, bilateral MG screening mammo w CAD. The breast tissue is heterogeneously dense. This may lower the sensitivity of mammography. No significant changes when compared with prior studies. ASSESSMENT: Negative, BI-RAD 1 RECOMMENDATION: Routine screening mammogram of both breasts in 1 year.
== END | disposition home or self-care (01) ==
LOC: RADMAMWWP 10:49
PROVIDERS: ATTEND Internal Medicine
DX: Z12.31 Encounter for screening mammogram for malignant neoplasm of breast (principal)
CPT/HCPCS: 77063; G0202

== ENCOUNTER → 2016-10-03 | Outpatient (CLI) | payer MEDICARE ==
--- NOTE | 2016-10-03 11:55 | BD ---
EXAMINATION TYPE: MG DEXA axial skeleton. DATE OF EXAM: 10/03/2016 CLINICAL HISTORY: M81.0 Osteoporosis Height: 62 Weight: 140 FRAX RISK QUESTIONS: Alcohol (3 or more units per day): no Family History (Parent hip fracture): no Glucocorticoids (More than 3mos): no (Ex: prednisone, prednisolone, methylprednisolone, dexamethasone, and hydrocortisone). History of Fracture in Adulthood: no Secondary Osteoporosis: 1. Type 1 Diabetes: no 2. Hyperthyroidism: no 3. Menopause before 45: no 4. Malnutrition: no 5. Chronic liver disease: no Rheumatoid Arthritis: no Current Tobacco Use: no RISK FACTORS HISTORY OF: Family History of Osteoporosis: no Active: yes Diet low in dairy products/other sources of calcium: no Postmenopausal woman: yes Take estrogen and/or progesterone medications: not now How long: about age [age] Lost more than 2 inches in height since high school: no Frequent falls: no Poor Health: no Hyperparathyroidism: no Adrenal Insufficiency: no MEDICATIONS: Prednisone or other steroids: no Thyroid Medications: yes Which medication: "Natures Thyroid" How Long: about 15 years Osteoporosis Medications: no Additional Medications: multivitamin EXAM MEASUREMENTS: Bone mineral densitometry was performed using the [employer] System. Bone mineral density as measured about the Lumbar spine is: ----- L1-L4(G/cm2): 1.144 T Score Values are as follows: ----- L2: -0.7 ----- L3: 0.1 ----- L4: -0.2 ----- L1-L4: -0.3 Bone mineral density has: Increased 4.4% since study of: 07/19/2006 Bone mineral density about the R hip (g/cm2): 1.045 Bone mineral density about the L hip (g/cm2): 1.070 T Score values are as follows: -----R Neck: 0.1 -----L Neck: 0.2 -----R Total: 0.7 -----L Total: 1.2 Bone mineral density has: Increased 0.8% since study of: 07/19/2006 IMPRESSION: No evidence for osteoporosis or osteopenia. NOTE: T-SCORE=SD OF THE YOUNG ADULT MEAN.
== END | disposition home or self-care (01) ==
LOC: RADBDWWP 09:36
PROVIDERS: ATTEND Internal Medicine
DX: M81.0 Age-related osteoporosis without current pathological fracture (principal)
CPT/HCPCS: 77080

== ENCOUNTER → 2017-08-24 | Outpatient (CLI) | payer MEDICARE ==
--- NOTE | 2017-08-24 14:11 | US ---
EXAMINATION TYPE: US kidneys/renal and bladder DATE OF EXAM: 08/24/2017 COMPARISON: NONE CLINICAL HISTORY: R35.0 urinary frequency. EXAM MEASUREMENTS: Right Kidney: 10.9 x 3.9 x 4.4 cm Left Kidney: 10.5 x 5.6 x 5.2 cm Post Void Residual Volume: 13.6 mL Right Kidney: No hydronephrosis or masses seen Left Kidney: No hydronephrosis or masses seen Bladder: wnl Normal Post Void Residual: Yes Cortical medullary differentiation is maintained. There is no evident renal calcification. IMPRESSION: Normal renal ultrasound. Normal post void residual volume within the urinary bladder.
== END | disposition home or self-care (01) ==
LOC: RADUSWWP 11:33
PROVIDERS: ATTEND Internal Medicine
DX: R35.0 Frequency of micturition (principal)
CPT/HCPCS: 76770

== ENCOUNTER → 2017-10-05 | Outpatient (CLI) | payer MEDICARE ==
--- NOTE | 2017-10-09 12:10 | MM ---
Reason for exam: screening (asymptomatic). Last mammogram was performed 1 year and 1 month ago. History: Patient is postmenopausal. Benign cyst aspiration of the right breast. Took estrogen for 4 years beginning at age 53. Physical Findings: A clinical breast exam by your physician is recommended on an annual basis and results should be correlated with mammographic findings. MG 3D Screening Mammo W/Cad Bilateral CC and MLO view(s) were taken. Prior study comparison: September 15, 2016, bilateral MG 3d screening mammo w/cad. August 24, 2015, bilateral MG 3d screening mammo w/cad. The breast tissue is heterogeneously dense. This may lower the sensitivity of mammography. Previous mammotome biopsy in the right breast. No significant changes when compared with prior studies. ASSESSMENT: Benign, BI-RAD 2 RECOMMENDATION: Routine screening mammogram of both breasts in 1 year.
== END | disposition home or self-care (01) ==
LOC: RADMAMWWP 08:43
PROVIDERS: ATTEND Internal Medicine
DX: Z12.31 Encounter for screening mammogram for malignant neoplasm of breast (principal)
CPT/HCPCS: 77063; 77067

== ENCOUNTER 2018-06-19 10:12 | Emergency (ER) | payer MEDICARE ==
[2018-06-19 10:57] VITALS: TEMP 98.1
[2018-06-19] MEDS ORDERED: SODIUM CHLORIDE 0.9% 1,000 ML IV STA (11:22)
[2018-06-19 11:49] LABS: Appearance,Urine Clear (Clear); Bilirubin,Urine Negative (Negative); Blood,Urine Negative (Negative); Color,Urine Light Yellow; Glucose,Urine (UA) Negative (Negative); Ketones,Urine Negative (Negative); Leukocyte Esterase,Urine Negative (Negative); Nitrite,Urine Negative (Negative); PH, Urine 6.5 (5.0-8.0); Protein,Urine Negative (Negative); Specific Gravity,Urine 1.004 (1.001-1.035); Urobilinogen,Urine <2.0 mg/dL (<2.0)
[2018-06-19 11:51] LABS: Basophils % (A) 0 %; Eosinophils # (A) 0.2 k/uL (0-0.7); Eosinophils % (A) 2 %; HCT 37.9 % (34.0-46.0); HGB 12.6 gm/dL (11.4-16.0); Lymphocytes % (A) 11 %; MCH 32.7 pg (25.0-35.0); MCHC 33.3 g/dL (31.0-37.0); MCV 98.2 fL (80.0-100.0); Mean Platelet Volume 7.3; Monocytes # (A) 0.8 k/uL (0-1.0); Monocytes % (A) 8 %; Neutrophils # (A) 7.1 k/uL (1.3-7.7); Neutrophils % (A) 77 %; Platelet Count 231 k/uL (150-450); RBC 3.86 m/uL (3.80-5.40); RDW 12.6 % (11.5-15.5); WBC 9.2 k/uL (3.8-10.6)
[2018-06-19 12:00] LABS: ALT 69 U/L (9-52); AST 106 U/L (14-36); Albumin 3.9 g/dL (3.5-5.0); Alkaline Phosphatase 81 U/L (38-126); Amylase 43 U/L (30-110); Anion Gap 6 mmol/L; Blood Urea Nitrogen 13 mg/dL (7-17); Calcium 9.8 mg/dL (8.4-10.2); Carbon Dioxide 26 mmol/L (22-30); Chloride 105 mmol/L (98-107); Glucose 102 mg/dL (74-99); Lipase 61 U/L (23-300); Potassium 4.1 mmol/L (3.5-5.1); Sodium 137 mmol/L (137-145); Total Bilirubin 0.6 mg/dL (0.2-1.3); Total Protein 6.2 g/dL (6.3-8.2)
--- NOTE | 2018-06-19 12:24 | CT ---
EXAMINATION TYPE: CT abdomen pelvis wo con DATE OF EXAM: 06/19/2018 HISTORY: Low pelvic pain, blood in urine CT DLP: 353 mGycm. Automated Exposure Control for Dose Reduction was Utilized. TECHNIQUE: CT scan of the abdomen and pelvis is performed without oral or IV contrast. COMPARISON: NONE FINDINGS: Within the limitations of a non-contrast study, the following observations are made. LUNG BASES: Dependent atelectasis is seen. There is additional central left basilar linear scarring a nd/or atelectasis. LIVER/GB: Single calcification posterior to inferior right hepatic lobe axial image 49 noted. PANCREAS: No significant abnormality is seen. SPLEEN: No significant abnormality is seen. ADRENALS: No significant abnormality is seen. KIDNEYS: No renal calculi or hydronephrosis is present bilaterally. Mildly distended bladder. BOWEL: Evaluation bowels suboptimal secondary to lack of enteric contrast. There is no suspicious sma ll or large bowel dilatation. There are diverticula in the sigmoid colon. There is moderate wall thic kening with mild/moderate ill-defined fluid and fat stranding in the left pelvis consistent with acut e diverticulitis centered near axial image 70. No well-formed abscess or fluid collection is seen. No pneumoperitoneum is noted. GENITAL ORGANS: Anteverted uterus is seen. Trace free fluid in pelvic cul-de-sac. Occasional pelvic p hlebolith. LYMPH NODES: No greater than 1cm abdominal or pelvic lymph nodes are appreciated. OSSEOUS STRUCTURES: Moderate disc space narrowing vacuum disc phenomenon L5-S1 level is present. Mild to moderate disc space narrowing and vacuum disc phenomenon L2-L3 level is seen. Mild to moderate mu ltilevel spurring in the visualized thoracic spine is noted. Mild narrowing of both hip joints is pre sent. OTHER: No significant additional abnormality is seen. IMPRESSION: CT findings consistent with a fairly moderate acute diverticulitis mid sigmoid colon in t he left pelvis. Advise colonoscopy follow-up after medical treatment due to moderate wall thickening to rule out neoplasm if this has not been performed in last 3 years.
[2018-06-19] MEDS ORDERED: AMPICILLIN-SULBACTAM 3 GM in SODIUM CHLORIDE 0.9% 100 ML IVPB STA (12:46)
--- NOTE | 2018-06-19 12:49 | ED ---
Abdominal Pain HPI - General Chief Complaint: Abdominal Pain Stated Complaint: abn labs, abd pain Time Seen by Provider: 06/19/18 11:00 Source: patient, RN notes reviewed Mode of arrival: ambulatory Limitations: no limitations - History of Present Illness Initial Comments: 67-year-old female presents emergency dept for abdominal pain. Patient CT shows evidence of diverticulitis. She is stable, tolerating oral intake. Patient will be discharged on oral antibiotics. Patient given a first initial dose of Unasyn in emergency department. Return parameters were discussed. - Related Data Home Medications Medication Instructions Recorded Confirmed Multivitamins, Thera [Multivitamin 1 tab PO DAILY 08/06/16 06/19/18 (formulary)] Thyroid,Pork [Nature-Throid] 97.5 mg PO DAILY 08/07/16 06/19/18 Montelukast [Singulair] 10 mg PO HS 06/19/18 06/19/18 Previous Rx's Medication Instructions Recorded ALPRAZolam [Xanax] 0.25 mg PO Q8HR PRN #30 tab 08/08/16 Amoxicillin/Potassium Clav 1 tab PO Q12HR #20 tab 06/19/18 [Augmentin 875-125 Tablet] Allergies Allergy/AdvReac Type Severity Reaction Status Date / Time ceftriaxone Allergy Intermediate Rash/Hives Verified 06/19/18 11:08 Review of Systems ROS Statement: Those systems with pertinent positive or pertinent negative responses have been documented in the HPI. ROS Other: All systems not noted in ROS Statement are negative. Past Medical History Past Medical History: Thyroid Disorder Additional Past Medical History / Comment(s): Hypothyroid, sepsis with uti History of Any Multi-Drug Resistant Organisms: None Reported Past Surgical History: Tonsillectomy Past Anesthesia/Blood Transfusion Reactions: No Reported Reaction Past Psychological History: Anxiety Smoking Status: Never smoker Past Alcohol Use History: Daily Past Drug Use History: None Reported - Past Family History Mother Family Medical History: Congestive Heart Failure (CHF), Renal Disease Additional Family Medical History / Comment(s): kidney stones Father Additional Family Medical History / Comment(s): lung disease related to asbestos exposure General Exam Limitations: no limitations Course Vital Signs 06/19/18 10:53 Temperature 98.1 F Pulse Rate 79 Respiratory 16 Rate Blood Pressure 119/63 O2 Sat by Pulse 98 Oximetry Medical Decision Making - Lab Data Result diagrams: 06/19/18 11:36 06/19/18 11:36 Lab Results 06/19/18 06/19/18 06/19/18 Range/Units 11:36 11:36 11:36 WBC 9.2 (3.8-10.6) k/uL RBC 3.86 (3.80-5.40) m/uL Hgb 12.6 (11.4-16.0) gm/dL Hct 37.9 (34.0-46.0) % MCV 98.2 (80.0-100.0) fL MCH 32.7 (25.0-35.0) pg MCHC 33.3 (31.0-37.0) g/dL RDW 12.6 (11.5-15.5) % Plt Count 231 (150-450) k/uL Neutrophils % 77 % Lymphocytes % 11 % Monocytes % 8 % Eosinophils % 2 % Basophils % 0 % Neutrophils # 7.1 (1.3-7.7) k/uL Lymphocytes # 1.0 (1.0-4.8) k/uL Monocytes # 0.8 (0-1.0) k/uL Eosinophils # 0.2 (0-0.7) k/uL Basophils # 0.0 (0-0.2) k/uL Sodium 137 (137-145) mmol/L Potassium 4.1 (3.5-5.1) mmol/L Chloride 105 (98-107) mmol/L Carbon Dioxide 26 (22-30) mmol/L Anion Gap 6 mmol/L BUN 13 (7-17) mg/dL Creatinine 0.54 (0.52-1.04) mg/dL Est GFR (CKD-EPI)AfAm >90 (>60 ml/min/1.73 sqM) Est GFR (CKD-EPI)NonAf >90 (>60 ml/min/1.73 sqM) Glucose 102 H (74-99) mg/dL Calcium 9.8 (8.4-10.2) mg/dL Total Bilirubin 0.6 (0.2-1.3) mg/dL AST 106 H (14-36) U/L ALT 69 H (9-52) U/L Alkaline Phosphatase 81 (38-126) U/L Total Protein 6.2 L (6.3-8.2) g/dL Albumin 3.9 (3.5-5.0) g/dL Amylase 43 (30-110) U/L Lipase 61 (23-300) U/L Urine Color Light Yellow Urine Appearance Clear (Clear) Urine pH 6.5 (5.0-8.0) Ur Specific [place] 1.004 (1.001-1.035) Urine Protein Negative (Negative) Urine Glucose (UA) Negative (Negative) Urine Ketones Negative (Negative) Urine Blood Negative (Negative) Urine Nitrite Negative (Negative) Urine Bilirubin Negative (Negative) Urine Urobilinogen <2.0 (<2.0) mg/dL Ur Leukocyte Esterase Negative (Negative) Disposition Clinical Impression: Diverticulitis Disposition: HOME SELF-CARE Condition: Stable Instructions (If sedation given, give patient instructions): Diverticulitis Diet (ED), Diverticulitis (ED) Additional Instructions: Follow-up your primary care physician and discuss possible colonoscopy after treatment of diverticulitis.Please return to the Emergency Department if symptoms worsen or any other concerns. Prescriptions: Amoxicillin/Potassium Clav [Augmentin 875-125 Tablet] 1 tab PO Q12HR #20 tab Is patient prescribed a controlled substance at d/c from ED?: No Referrals: Mimi Ureña MD [Primary Care Provider] - 1-2 days Time of Disposition: 12:49
[2018-06-19 14:08] VITALS: BP 123/77; PULSE 74; RESP 18
== END 2018-06-19 14:07 | disposition home or self-care (01) ==
LOC: EC 10:12
DX: K57.32 Diverticulitis of large intestine without perforation or abscess without bleeding (principal); E03.9 Hypothyroidism, unspecified; Z79.899 Other long term (current) drug therapy; Z88.1 Allergy status to other antibiotic agents
CPT/HCPCS: 36415; 80053; 82150; 83690; 85025; 81003; 74176; 99284; 96365; 96361; J0295

== ENCOUNTER → 2018-10-22 | Outpatient (CLI) | payer MEDICARE ==
--- NOTE | 2018-10-22 10:39 | BD ---
EXAMINATION TYPE: Axial Bone Density DATE OF EXAM: 10/22/2018 COMPARISON: 10.03.2016 CLINICAL HISTORY: M [age] Height: 62 Weight: 132.6 FRAX RISK QUESTIONS: Alcohol (3 or more units per day): no Family History (Parent hip fracture): no Glucocorticoids (More than 3mos): no (Ex: prednisone, prednisolone, methylprednisolone, dexamethasone, and hydrocortisone). History of Fracture in Adulthood: no Secondary Osteoporosis: 1. Type 1 Diabetes: no 2. Hyperthyroidism: no 3. Menopause before 45: no 4. Malnutrition: no 5. Chronic liver disease: no Rheumatoid Arthritis: no Current Tobacco Use: no RISK FACTORS HISTORY OF: Surgery to Spine/Hip(right/left)/Wrist (right/left): no Family History of Osteoporosis: no Active: yes Diet low in dairy products/other sources of calcium: yes Postmenopausal woman: around age 50 Lost more than 2 inches in height since high school: no MEDICATIONS: singulair Thyroid Medications: thyroid How Lon years Additional History: EXAM MEASUREMENTS: Bone mineral densitometry was performed using the KSKT System. Bone mineral density as measured about the Lumbar spine is: ----- L1-L4(G/cm2): 1.154 T Score Values are as follows: ----- L2: -0.7 ----- L3: -0.2 ----- L4: 0.3 ----- L1-L4: -0.2 Bone mineral density has: increased 1.4 % since study of: 10.03.2016 Bone mineral density about the R hip (g/cm2): 0.988 Bone mineral density about the L hip (g/cm2): 1.044 T Score values are as follows: -----R Neck: -0.4 -----L Neck: 0.0 -----R Total: 0.3 -----L Total: 1.1 Bone mineral density has: decreased -2.9 % since study of: 10.03.2016 IMPRESSION: Normal (Values between +1 and -1 indicate normal bone mass). Consider repeating this study in 5 year s or sooner if there is some new clinical indication. NOTE: T-SCORE=SD OF THE YOUNG ADULT MEAN.
--- NOTE | 2018-10-23 09:53 | MM ---
Reason for exam: screening (asymptomatic). Last mammogram was performed 1 year and 1 month ago. History: Patient is postmenopausal. Benign cyst aspiration of the right breast. Took estrogen for 4 years beginning at age 53. Physical Findings: A clinical breast exam by your physician is recommended on an annual basis and results should be correlated with mammographic findings. MG 3D Screening Mammo W/Cad Bilateral CC and MLO view(s) were taken. Prior study comparison: October 05, 2017, bilateral MG 3d screening mammo w/cad. September 15, 2016, bilateral MG 3d screening mammo w/cad. The breast tissue is heterogeneously dense. This may lower the sensitivity of mammography. Benign appearing bilateral calcifications. No suspicious abnormality. No significant changes when compared with prior studies. ASSESSMENT: Benign, BI-RAD 2 RECOMMENDATION: Routine screening mammogram of both breasts in 1 year.
== END | disposition home or self-care (01) ==
LOC: RADMAMWWP 09:14
PROVIDERS: ATTEND Internal Medicine
DX: Z12.31 Encounter for screening mammogram for malignant neoplasm of breast (principal); M85.9 Disorder of bone density and structure, unspecified
CPT/HCPCS: 77063; 77067; 77080

== ENCOUNTER → 2019-10-24 | Outpatient (CLI) | payer MEDICARE ==
--- NOTE | 2019-10-28 13:50 | MM ---
Reason for exam: screening (asymptomatic). Last mammogram was performed 1 year ago. History: Patient is postmenopausal. Benign cyst aspiration of the right breast. Took estrogen for 4 years beginning at age 53. Physical Findings: A clinical breast exam by your physician is recommended on an annual basis and results should be correlated with mammographic findings. MG 3D Screening Mammo W/Cad Bilateral CC and MLO view(s) were taken. Prior study comparison: October 22, 2018, bilateral MG 3d screening mammo w/cad. October 05, 2017, bilateral MG 3d screening mammo w/cad. The breast tissue is heterogeneously dense. This may lower the sensitivity of mammography. No significant changes when compared with prior studies. ASSESSMENT: Benign, BI-RAD 2 RECOMMENDATION: Routine screening mammogram of both breasts in 1 year.
== END | disposition home or self-care (01) ==
LOC: RADMAMWWP 09:16
PROVIDERS: ATTEND Internal Medicine
DX: Z12.31 Encounter for screening mammogram for malignant neoplasm of breast (principal)
CPT/HCPCS: 77063; 77067

== ENCOUNTER 2020-09-28 07:48 | Day surgery (SDC) | payer MEDICARE ==
[2020-09-24 10:29] VITALS: BMI 24.7
[~2020-09-28 07:48] MED LIST: LACTATED RINGERS 1,000 ML IV SCH; LIDOCAINE 1% (10MG/ML) FOR IV START INTRADERMA PRN
[2020-09-28 08:10] VITALS: RESP 16; TEMP 97.6
[2020-09-28] MEDS ORDERED: PROPOFOL 10 MG/ML 20 ML VIAL IV ONE (08:46)
[2020-09-28] MEDS ORDERED: MIDAZOLAM 2 MG/2 ML VIAL ONE (08:46)
[2020-09-28] MEDS ORDERED: fentaNYL (PF) 50 MCG/ML 2 ML AMP ONE (08:46)
--- NOTE | 2020-09-28 09:19 | P.PCN ---
Date of Procedure: 09/28/20 Description of Procedure: BRIEF HISTORY: Patient is a 70-year-old female presenting for outpatient colonoscopy for screening for malignant neoplasm of the colon. Last colonoscopy 10 years ago. She denies any polyps in the past. No family history of colon cancer. No change in bowel habits. PROCEDURE PERFORMED: Colonoscopy with polypectomy and Endo Clip placement. PREOPERATIVE DIAGNOSIS: Screening for malignant neoplasm of the colon, last colonoscopy 10 years ago. ESTIMATED BLOOD LOSS: Minimal. IV sedation per Anesthesia. PROCEDURE: After informed consent was obtained, the patient, was brought into the endoscopy unit. IV sedation was administered by Anesthesia under continuous monitoring. Digital rectal examination was normal. Initially the Olympus CF-190 flexible video colonoscope was then inserted in the rectum, gradually advanced into the cecum without any difficulty. Careful examination was performed as the scope was gradually being withdrawn. Ileocecal valve and the appendiceal orifice were visualized and appeared normal. Prep was excellent. Mucosa of the cecum, ascending colon, transverse colon, descending colon, sigmoid colon, and rectum appeared normal. 3 colon polyps measuring from 3-7 mm in size removed with cold snare polypectomy from the cecum, transverse colon and hepatic flexure, with Endo Clip placement 2 at the hepatic flexure for hemostasis due to a small amount of oozing of blood from the site. Multiple small mouth diverticula noted in the sigmoid colon. Retroflexion was performed in the rectum and no lesions were seen, and low-grade internal hemorrhoids noted. The patient tolerated the procedure well. IMPRESSION: 3 polyps removed with cold snare polypectomy from the transverse colon, cecum and hepatic flexure with Endo Clip placement 2 at the hepatic flexure for hemostasis. Mild sigmoid diverticulosis. Internal hemorrhoids. RECOMMENDATIONS: Findings of this examination were discussed with the patient and her family. Okay to resume diet. Okay to resume medications. Await pathology from polypectomies. Recommend repeat colonoscopy in 5 years for colon polyps pending pathology from polypectomy.
[2020-09-28 09:31] VITALS: BP 120/67; PULSE 57
== END 2020-09-28 09:57 | disposition home or self-care (01) ==
LOC: ORWHC2ENDO 07:48
PROVIDERS: ATTEND Internal Medicine
DX: Z12.11 Encounter for screening for malignant neoplasm of colon (principal); D12.3 Benign neoplasm of transverse colon; D12.0 Benign neoplasm of cecum; K57.30 Diverticulosis of large intestine without perforation or abscess without bleeding; K64.8 Other hemorrhoids; E78.5 Hyperlipidemia, unspecified; E07.9 Disorder of thyroid, unspecified; Z90.89 Acquired absence of other organs; Z98.890 Other specified postprocedural states; Z79.890 Hormone replacement therapy; Z79.899 Other long term (current) drug therapy; Z88.8 Allergy status to other drugs, medicaments and biological substances
CPT/HCPCS: 45385; 88305; J2250; J3010; J2704; 45382

== ENCOUNTER → 2020-10-26 | Outpatient (CLI) | payer MEDICARE ==
--- NOTE | 2020-10-27 09:17 | MM ---
Reason for exam: screening (asymptomatic). Last mammogram was performed 1 year ago. History: Patient is postmenopausal. Benign cyst aspiration of the right breast. Took estrogen for 4 years beginning at age 53. Physical Findings: A clinical breast exam by your physician is recommended on an annual basis and results should be correlated with mammographic findings. MG 3D Screening Mammo W/Cad Bilateral CC and MLO view(s) were taken. Prior study comparison: October 24, 2019, bilateral MG 3d screening mammo w/cad. October 22, 2018, bilateral MG 3d screening mammo w/cad. The breast tissue is heterogeneously dense. This may lower the sensitivity of mammography. Stable benign calcifications. There is no discrete abnormality. No significant changes when compared with prior studies. ASSESSMENT: Benign, BI-RAD 2 RECOMMENDATION: Routine screening mammogram of both breasts in 1 year.
== END | disposition home or self-care (01) ==
LOC: RADMAMWWP 08:54
PROVIDERS: ATTEND Internal Medicine
DX: Z12.31 Encounter for screening mammogram for malignant neoplasm of breast (principal); Z78.0 Asymptomatic menopausal state; Z79.818 Long term (current) use of other agents affecting estrogen receptors and estrogen levels
CPT/HCPCS: 77063; 77067

== ENCOUNTER → 2021-07-06 | Outpatient (CLI) | payer MEDICARE ==
--- NOTE | 2021-07-07 01:40 | MR ---
EXAMINATION TYPE: MR lumbar spine wo con DATE OF EXAM: 07/06/2021 COMPARISON: None HISTORY: Spondylosis with myelopathy. Multiplanar multi echo imaging of the lumbar spine without contrast. The lumbar vertebrae have normal alignment. There is mild narrowing and decreased signal in the disks throughout the lumbar spine. No compression fracture. There is mild posterior disc bulging and herni ation centrally at L2-3 and L3-4. There is developmentally adequate spinal canal. No spinal stenosis. No lumbar paraspinal mass. The lumbar neural foramina are fairly well maintained. The sacroiliac pop nts appear intact. Posterior elements are intact. No evidence of focal bone destruction. IMPRESSION: Mild degenerative disc changes. Mild posterior disc bulging at L2-3 and L3-4. No spinal stenosis. No fracture.
== END | disposition home or self-care (01) ==
LOC: RADMRIMAIN 12:11
PROVIDERS: ATTEND Internal Medicine
DX: M51.06 Intervertebral disc disorders with myelopathy, lumbar region (principal); M47.16 Other spondylosis with myelopathy, lumbar region; M48.061 Spinal stenosis, lumbar region without neurogenic claudication
CPT/HCPCS: 72148

== ENCOUNTER → 2021-11-15 | Outpatient (CLI) | payer MEDICARE ==
--- NOTE | 2021-11-16 10:13 | MM ---
Reason for Exam: Screening (asymptomatic). Last screening mammogram was performed 12 month(s) ago. Patient History: Menarche at age 13. First Full-Term at age 19. Postmenopausal. Patient has history of breast feeding. Estrogen for 4 years from age 53 until age 57. Benign Cyst Aspiration on the right side. Niece had breast cancer, age 38. Risk Values: Jyoti 5 year model risk: 1.3%. NCI Lifetime model risk: 3.5%. Prior Study Comparison: 09/15/2016 Bilateral Screening Mammogram, [facility]. 10/05/2017 Bilateral Screening Mammogram, [facility]. 10/22/2018 Bilateral Screening Mammogram, [facility]. 10/24/2019 Bilateral Screening Mammogram, [facility]. 10/26/2020 Bilateral Screening Mammogram, [facility]. Tissue Density: The breast tissue is heterogeneously dense. This may lower the sensitivity of mammography. Findings: Analyzed By CAD. Scattered small benign round calcifications bilaterally are redemonstrated. There is and occasional small scattered benign-appearing round mass on background dense tissue which appears stable from prior mammograms. There is no suspicious new group of microcalcifications or enlarging suspicious mass in either breast. Overall Assessment: Benign, BI-RAD 2 Management: Screening Mammogram of both breasts in 1 year. A clinical breast exam by your physician is recommended on an annual basis and results should be correlated with mammographic findings. Electronically signed and approved by: Varun Galvin M.D.
== END | disposition home or self-care (01) ==
LOC: RADMAMWWP 09:40
PROVIDERS: ATTEND Internal Medicine
DX: Z12.31 Encounter for screening mammogram for malignant neoplasm of breast (principal); Z78.0 Asymptomatic menopausal state; Z80.3 Family history of malignant neoplasm of breast
CPT/HCPCS: 77063; 77067

== ENCOUNTER → 2023-07-18 | Outpatient (CLI) | payer MEDICARE ==
--- NOTE | 2023-07-18 16:46 | CA ---
Transthoracic Echo Report Name: Sanjuana Rangel Age: 72 Gender: F : 1950 Exam Date: 07/18/2023 13:18 Exam Location: [facility] Ht (in): 62 Wt (lb): 135 Ordering Physician: Mimi Ureña MD Attending/Referring Phys: Elastic Attacher Coverstitch Jael Taylor RDCS Procedure CPT: Indications: I34.0 NONRHEUMATIC MITRAL (VALVE) INSUFFICIENCY Cardiac Hx: Technical Quality: Good Contrast 1: Total Dose (mL): Contrast 2: Total Dose (mL): MEASUREMENTS (Male / Female) Normal Values 2D ECHO LV Diastolic Diameter PLAX 4.4 cm 4.2 - 5.9 / 3.9 - 5.3 cm LV Systolic Diameter PLAX 3.0 cm IVS Diastolic Thickness 1.2 cm 0.6 - 1.0 / 0.6 - 0.9 cm LVPW Diastolic Thickness 0.8 cm 0.6 - 1.0 / 0.6 - 0.9 cm LV Relative Wall Thickness 0.5 RV Internal Dim ED PLAX 2.7 cm LVOT Diameter 1.9 cm LV Diastolic Volume MOD BP 80.1 cm??? 67 - 155 / 56 - 104 cm??? LV Systolic Volume MOD BP 27.3 cm??? 22 - 58 / 19 - 49 cm??? LV Ejection Fraction MOD BP 66.0 % >= 55 % LV Cardiac Index MOD BP 1763.3 cm???/min???m??? LV Diastolic Volume MOD 4C 85.3 cm??? LV Systolic Volume MOD 4C 28.7 cm??? LV Ejection Fraction MOD 4C 66.4 % LV Cardiac Index MOD 4C 1889.8 cm???/min???m??? LV Diastolic Length 4C 7.3 cm LV Systolic Length 4C 5.6 cm LV Diastolic Volume MOD 2C 75.2 cm??? LV Systolic Volume MOD 2C 25.5 cm??? LV Ejection Fraction MOD 2C 66.1 % LV Cardiac Index MOD 2C 1657.2 cm???/min???m??? LV Diastolic Length 2C 7.3 cm LV Systolic Length 2C 5.7 cm LA Volume 59.1 cm??? 18 - 58 / 22 - 52 cm??? LA Volume Index 35.8 cm???/m??? 16 - 28 cm???/m??? Ascending Aorta Diameter 3.2 cm DOPPLER AV Peak Velocity 137.9 cm/s AV Peak Gradient 7.6 mmHg AV Mean Velocity 96.2 cm/s AV Mean Gradient 4.1 mmHg AV Velocity Time Integral 30.8 cm LVOT Peak Velocity 97.0 cm/s LVOT Peak Gradient 3.8 mmHg LVOT Velocity Time Integral 21.5 cm LVOT Stroke Volume 58.4 cm??? LVOT Stroke Volume Index 36.1 ml/m??? LVOT Cardiac Index 1948.2 cm???/min???m??? AV Area Cont Eq vti 1.9 cm??? AV Area Cont Eq pk 1.9 cm??? MV Area PHT 4.6 cm??? Mitral E Point Velocity 54.4 cm/s Mitral A Point Velocity 75.6 cm/s Mitral E to A Ratio 0.7 MV Deceleration Time 165.1 ms TR Peak Velocity 218.3 cm/s TR Peak Gradient 19.1 mmHg Right Atrial Pressure 5.0 mmHg Pulmonary Artery Systolic Pressu 24.1 mmHg Right Ventricular Systolic Press 24.1 mmHg PV Peak Velocity 71.4 cm/s PV Peak Gradient 2.0 mmHg FINDINGS Left Ventricle Left ventricular ejection fraction is estimated at 60-65 %. Mildly increased septal wall thickness. Left ventricular cavity size normal. No obvious regional wall motion abnormalities. Right Ventricle Normal right ventricular size and function. Right ventricular systolic pressure within normal limits. Right Atrium Normal right atrial size. Left Atrium Mildly increased left atrial volume. Mildly increased left atrial area. Mitral Valve Structurally normal mitral valve. No mitral stenosis, regurgitation or prolapse. Aortic Valve Trileaflet aortic valve. No aortic valve stenosis or regurgitation. Tricuspid Valve Structurally normal tricuspid valve. No tricuspid stenosis. Trace to mild tricuspid regurgitation. Pulmonic Valve Structurally normal pulmonic valve. No pulmonic stenosis. Trace pulmonic regurgitation. Pericardium No pericardial effusion. Aorta Normal size aortic root and proximal ascending aorta. CONCLUSIONS Left ventricular ejection fraction is estimated at 60-65 %. No obvious regional wall motion abnormalities. Normal right ventricular size and function. Mild left atrial dilatation No significant valve dysfunction Previewed by: Dr Orlando Engel (Electronically Signed) Final Date: 18 Jul 2023 16:45
== END | disposition home or self-care (01) ==
LOC: RADECHMAIN 12:52
PROVIDERS: ATTEND Internal Medicine
DX: I34.0 Nonrheumatic mitral (valve) insufficiency (principal)
CPT/HCPCS: 93306

== ENCOUNTER → 2023-07-18 | Outpatient (CLI) | payer MEDICARE ==
--- NOTE | 2023-07-22 15:25 | US ---
EXAMINATION TYPE: US carotid duplex BILAT DATE OF EXAM: 07/18/2023 COMPARISON: NONE CLINICAL INDICATION: Female, 72 years old with history of Z13.6 ENCOUNTER FOR SCREENING FOR CARDIOVAS CULAR D; family h/o cardiovascular disease, no symptoms per patient TECHNIQUE: Carotid duplex ultrasound examination. Indirect Doppler criteria was utilized. FINDINGS: EXAM MEASUREMENTS: RIGHT: Peak Systolic Velocity (PSV) cm/sec ----- Right CCA: 67.8 ----- Right ICA: 75.0 ----- Right ECA: 89.4 ICA/CCA ratio: 1.1 RIGHT: End Diastole cm/sec ----- Right CCA: 17.5 ----- Right ICA: 19.0 ----- Right ECA: 12.3 LEFT: Peak Systolic Velocity (PSV) cm/sec ----- Left CCA: 73.5 ----- Left ICA: 93.2 ----- Left ECA: 103 ICA/CCA ratio: 1.3 LEFT: End Diastole cm/sec ----- Left CCA: 17.4 ----- Left ICA: 34.9 ----- Left ECA: 10.1 VERTEBRALS (direction of flow): Right Vertebral: Antegrade Left Vertebral: Antegrade Rhythm: Normal MINER OPERATOR NOTES: Homogeneous plaque with no stenosis seen IMPRESSION: No ultrasound evidence for hemodynamically significant stenosis of the bilateral visualized carotid a rterial systems. Criteria for Assigning % of Stenosis / Diameter reduction (Estimation based on the indirect measurements of the internal carotid artery velocities (ICA PSV). 1. Normal (no stenosis)=ICA PSV < 125 cm/s: ratio < 2.0: ICA EDV<40 cm/s. 2. Less than 50% stenosis=ICA PSV < 125 cm/s: ratio < 2.0: ICA EDV<40 cm/s. 3. 50 to 69% stenosis=ICA PSV of 125 to 230 cm/s: ration 2.0 ? 4.0: ICA EDV 40-100 cm/s. 4. Greater than 70% stenosis to near occlusion= ICA PSV > 230 cm/s: ratio > 4.0: ICA EDV > 100 cm/s. 5. Near occlusion= ICA PSV velocities may be low or undetectable: variable ratio and ICA EDV. 6. Total occlusion=unable to detect flow.
== END | disposition home or self-care (01) ==
LOC: RADUSWWP 12:17
PROVIDERS: ATTEND Internal Medicine
DX: Z13.6 Encounter for screening for cardiovascular disorders (principal)
CPT/HCPCS: 93880

== ENCOUNTER → 2023-10-04 | Outpatient (CLI) | payer MEDICARE | END | disposition home or self-care (01) | LOC: LABPRL 12:00 | PROVIDERS: ATTEND Internal Medicine | DX: Z00.00 Encounter for general adult medical examination without abnormal findings (principal); E78.2 Mixed hyperlipidemia; K21.00 Gastro-esophageal reflux disease with esophagitis, without bleeding; G47.33 Obstructive sleep apnea (adult) (pediatric); F41.9 Anxiety disorder, unspecified; I34.0 Nonrheumatic mitral (valve) insufficiency | CPT/HCPCS: 80053; 80061; 82306; 83036; 83735; 83880; 84443; 85025 ==

== ENCOUNTER → 2023-10-29 | Outpatient (CLI) | payer MEDICARE ==
--- NOTE | 2023-10-30 14:01 | MM ---
Reason for Exam: Screening (asymptomatic). Last screening mammogram was performed 12 month(s) ago. Patient History: Menarche at age 13. First Full-Term at age 19. Postmenopausal. Patient has history of breast feeding. Estrogen for 4 years from age 53 until age 57. Benign Cyst Aspiration on the right side. Niece had breast cancer, age 38. Sister had breast cancer, age 72. Risk Values: Jyoti 5 year model risk: 3.3%. NCI Lifetime model risk: 7.9%. Prior Study Comparison: 09/15/2016 Bilateral Screening Mammogram, [facility]. 10/05/2017 Bilateral Screening Mammogram, [facility]. 10/22/2018 Bilateral Screening Mammogram, [facility]. 10/24/2019 Bilateral Screening Mammogram, [facility]. 10/26/2020 Bilateral Screening Mammogram, [facility]. 11/15/2021 Bilateral MG 3D screening mammo w/cad, [facility]. 10/27/2022 Bilateral MG 3D diag mammo w/cad [facility], [facility]. Tissue Density: The breasts are heterogeneously dense, which may obscure small masses. Findings: Analyzed By CAD. There is no suspicious group of microcalcifications or new suspicious mass in either breast. Overall Assessment: Benign, BI-RAD 2 Management: Screening Mammogram of both breasts in 1 year. . Patient should continue monthly self-breast exams. A clinical breast exam by your physician is recommended on an annual basis. This exam should not preclude additional follow-up of suspicious palpable abnormalities. Note on Jyoti scores and lifetime risk: 1. A Jyoti score greater than 3% is considered moderate risk. If this is the case, consider specialist referral to assess eligibility for a risk reducing agent. 2. If overall lifetime risk for the development of breast cancer is 20% or higher, the patient may qualify for future screening with alternating mammogram and breast MRI. Electronically signed and approved by: Rick Barbosa M.D. Radiologis
== END | disposition home or self-care (01) ==
LOC: RADMAMWWP 09:59
PROVIDERS: ATTEND Internal Medicine
DX: Z12.31 Encounter for screening mammogram for malignant neoplasm of breast
CPT/HCPCS: 77063; 77067

== ENCOUNTER → 2024-07-29 | Outpatient (CLI) | payer MEDICARE ==
[2024-07-29 09:59] VITALS: BP 170/83; PULSE 55; RESP 16; TEMP 97.9
--- NOTE | 2024-07-29 11:02 | P.HPOB ---
History of Present Illness H&P Date: 07/29/24 Chief Complaint: The patient is here for her routine gynecologic exam. This is a 73-year-old G3, P3 with an LMP of approximately 2006. The patient is here to establish with this office. It has been about 6 years since her last pelvic exam. She is without gynecologic complaints and denies any postmenopausal bleeding. Review of Systems The patient's weight has been stable over the last year. She denies respiratory, cardiac, or G.I. problems. Past Medical History Past Medical History: Hyperlipidemia, Thyroid Disorder Additional Past Medical History / Comment(s): Hypothyroid, LOW BLOOD SUGAR. 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 History of Any Multi-Drug Resistant Organisms: None Reported Past Surgical History: Tonsillectomy Additional Past Surgical History / Comment(s): COLONOSCOPY 2023(next after 5- 8y). Past Anesthesia/Blood Transfusion Reactions: No Reported Reaction Past Psychological History: Anxiety Smoking Status: Never smoker Past Alcohol Use History: Daily (2 glasses of wine with dinner.) Additional Past Alcohol Use History / Comment(s): 1-2 glasses of wine/day. Past Drug Use History: None Reported Additional History: She has been since 1977 and is sexually active. 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 She [place] in [place]. - Past Family History Mother Family Medical History: Congestive Heart Failure (CHF), Coronary Artery Disease (CAD), Renal Disease Additional Family Medical History / Comment(s): kidney stones. . Father Additional Family Medical History / Comment(s): lung disease related to asbestos exposure. Pulmonary fibrosis. . Sister(s) Family Medical History: Cancer Additional Family Medical History / Comment(s): Breast cancer. A niece also had breast cancer. Medications and Allergies Home Medications and Allergies Comment(s): Lexapro daily. Home Medications Medication Instructions Recorded Confirmed Type Atorvastatin [Lipitor] 20 mg PO HS 09/24/20 07/29/24 History Levothyroxine Sodium [Synthroid] 75 mcg PO DAILY 09/24/20 07/29/24 History Thyroid,Pork [[place] Thyroid] 15 mg PO DAILY 07/29/24 07/29/24 History Allergies Allergy/AdvReac Type Severity Reaction Status Date / Time ceftriaxone Allergy Intermediate Rash/Hives Verified 07/29/24 09:55 Exam Vital Signs Temp Pulse Resp BP Pulse Ox 07/29/24 09:56 97.9 F 55 L 16 170/83 96 Intake and Output 07/28/24 07/29/24 07/29/24 22:59 06:59 14:59 Other: Weight 65.771 kg Height 5 feet 2 inches, weight 145 pounds, BMI 26.5. This is a well-developed well-nourished white female who is alert and oriented times 3 in no acute distress. HEENT: Within normal limits. NECK: Supple without mass or thyromegaly. CHEST AND LUNGS: Clear to auscultation. HEART: Regular rate and rhythm. BREASTS: Are without mass or discharge. AXILLARY EXAM: Negative for adenopathy. BACK: Negative for CVA tenderness. ABDOMEN: Soft, nontender, without palpable masses. PELVIC EXAM: Normal external genitalia with mild atrophy. Cervix and vagina appear normal with mild atrophy. The cervix is somewhat stenotic secondary to atrophy. There is no unusual discharge. There is no evidence of prolapse. The uterus is midposition, nongravid size and nontender. There are no palpable adnexal masses or tenderness. RECTAL EXAM: Rectovaginal exam is negative for mass or tenderness and is negative for occult blood. EXTREMITIES: Nontender. IMPRESSION: 1. 73-year-old menopausal female with normal gynecologic exam. 2. Elevated blood pressure. PLAN: 1. Pap smear was performed. She states she had regular pelvic exams and Pap smears in the past. She denies any history of cervical problems. If this Pap smear is negative, we will discontinue Pap smears. 2. Self breast awareness was discussed with the patient. We have also discussed symptoms associated with inflammatory breast cancer. 3. Screening mammogram was benign on 10/29/2023. She will repeat this after 1 year. The order slip was given to the patient for this. 4. Osteoporosis prevention was discussed. I have stressed the importance of adequate calcium, vitamin D and regular exercise. Recommended amounts of calcium and vitamin D were also discussed. She had a normal bone density test on 10/22/2018. Have recommended repeating this. The order slip was given to the patient for this. 5. We have discussed her elevated blood pressure. Have recommended that she check her own blood pressures on a regular basis and follow-up with her PCP for blood pressure elevations. 6. The patient was advised to return in 1-2 years for her well woman examination.
== END ==
LOC: WWCWWP 09:34
PROVIDERS: ATTEND Obstetrics & Gynecology
DX: Z01.419 Encounter for gynecological examination (general) (routine) without abnormal findings (principal); I10 Essential (primary) hypertension; Z88.1 Allergy status to other antibiotic agents; Z78.0 Asymptomatic menopausal state